=== PATIENT | female | born 1925 | race Caucasian/White ===

== ENCOUNTER 2017-07-11 21:05 | Observation (INO) | payer OTHER, MEDICARE ==
--- NOTE | 2017-07-11 21:15 | CPEKG ---
Heart Rate: 74 RR Interval: 811 QRSD Interval: 80 QT Interval: 388 QTC Interval: 431 QRS [place]: -9 T Wave [place]: 40 EKG Severity - ABNORMAL ECG - EKG Impression: ATRIAL FIBRILLATION Electronically Signed By: John Salinas 11-Jul-2017 21:30:23
[2017-07-11] MEDS ORDERED: NS 1,000 ML IV ONE (21:26)
[2017-07-11] MEDS ORDERED: ASPIRIN 81 MG CHEWABLE TAB PO ONE (21:26)
[2017-07-11] MEDS ORDERED: MAG HYDROX/AL HYDROX/SIMETH 30 ML UDCUP PO ONE (21:26)
[2017-07-11] MEDS ORDERED: LIDOCAINE 2% VISCOUS 15 ML UDCUP PO ONE (21:26)
[2017-07-11] MEDS ORDERED: HYOSCYAMINE SULFATE 0.125 MG TAB PO ONE (21:26)
--- NOTE | 2017-07-11 21:30 | EDPHY ---
H & P Stated Complaint: Chest pain since this morning Time Seen by Provider: 07/11/17 21:16 HPI/ROS: CHIEF COMPLAINT: Chest pain HISTORY OF PRESENT ILLNESS: Patient is an 89-year-old female with a history of coronary artery disease with 2 stents, atrial fibrillation on Coumadin as well as DVTs. She began burping and having chest discomfort this afternoon after lunch. She states that is very typical for to have burping and back discomfort and that is typically a sign of her indigestion. She took Tums without significant relief. It was unusual for her pain to be in her front. She has not had a fever. No shortness of breath. No diaphoresis. No nausea vomiting. She was not lightheaded or dizzy. REVIEW OF SYSTEMS: Constitutional: denies: chills, fever, recent illness, recent injury EENTM: denies: blurred vision, double vision, nose congestion Respiratory: denies: cough, shortness of breath Cardiac: See HPI Gastrointestinal/Abdominal: See HPI denies: abdominal pain, diarrhea, nausea, vomiting, blood streaked stools Genitourinary: denies: dysuria, frequency, hematuria, pain Musculoskeletal: denies: joint pain, muscle pain Skin: denies: lesions, rash, jaundice, bruising Neurological: denies: headache, numbness, paresthesia, tingling, dizziness, weakness Hematologic/Lymphatic: denies: blood clots, easy bleeding, easy bruising Immunologic/allergic: denies: HIV/AIDS, transplant EXAM: GENERAL: Well-appearing, well-nourished and in no acute distress. HEAD: Atraumatic, normocephalic. EYES: Pupils equal round and reactive to light, extraocular movements intact, sclera anicteric, conjunctiva are normal. ENT: TMs normal, nares patent, oropharynx clear without exudates. Moist mucous membranes. NECK: Normal range of motion, supple without lymphadenopathy or JVD. LUNGS: Breath sounds clear to auscultation bilaterally and equal. No wheezes rales or rhonchi. HEART: Irregular rhythm without murmurs, rubs or gallops. ABDOMEN: Soft, nontender, normoactive bowel sounds. No guarding, no rebound. No masses appreciated. BACK: No CVA tenderness, no spinal tenderness, step-offs or deformities EXTREMITIES: Normal range of motion, no pitting or edema. No clubbing or cyanosis. NEUROLOGICAL: Cranial nerves II through XII grossly intact. Normal speech, normal gait. 5/5 strength, normal movement in all extremities, normal sensation PSYCH: Normal mood, normal affect. SKIN: Warm, dry, normal turgor, no visible rashes or lesions. Source: Patient Exam Limitations: No limitations - Personal History Current Tetanus/Diphtheria Vaccine: Yes Current Tetanus Diphtheria and Acellular Pertussis (TDAP): Yes Tetanus Vaccine Date: 2007 - Medical/Surgical History Hx Asthma: No Hx Chronic Respiratory Disease: No Hx Diabetes: No Hx Cardiac Disease: Yes Hx Renal Disease: No Hx Cirrhosis: No Hx Alcoholism: No Hx HIV/AIDS: No Hx Splenectomy or Spleen Trauma: No Other PMH: stents X2, atrial fibrillation, DVT, scleroderma, rainouds disease - Family History Significant Family History: No pertinent family hx - Social History Smoking Status: Never smoked Alcohol Use: Sober Drug Use: None Constitutional: Initial Vital Signs Temperature (C) 36.6 C 07/11/17 21:13 Heart Rate 78 07/11/17 21:13 Respiratory Rate 16 07/11/17 21:13 Blood Pressure 125/82 H 07/11/17 21:13 O2 Sat (%) 99 07/11/17 21:13 O2 Delivery Mode Room Air Allergies/Adverse Reactions: codeine [Codeine] Allergy (Verified 07/12/17 11:13) Other-Enter Comments Home Medications: Medication Instructions Recorded Cholecalciferol Vit D3 [Vitamin D3 1,000 units PO DAILY 01/11/12 (*)] Rosuvastatin Calcium [Crestor 40mg 40 mg PO HS 01/11/12 (*)] Clopidogrel Bisulfate [Plavix (*)] 75 mg PO DAILY #30 tab 01/16/12 Warfarin Sodium [Coumadin 2MG (*)] 2 mg PO SUTUTHSA 07/11/17 Warfarin Sodium [Coumadin 3MG (*)] 3 mg PO MWF 07/11/17 Diltiazem HCl [Diltiazem 24Hr ER] 120 mg PO DAILY 07/12/17 Levothyroxine [Synthroid 50 mcg 50 mcg PO DAILY06 07/12/17 (*)] Ranitidine HCl 150 mg PO BID #60 tablet 07/12/17 Medical Decision Making - Diagnostics EKG Interpretation: An EKG obtained and was read and documented in trace view. Please see trace view for full reading and report. Atrial fibrillation, no acute ischemic changes , similar to 2012 ED Course/Re-evaluation: The patient's creatinine is slightly elevated but appears to be her baseline. Troponin is negative. I suspect that her discomfort is from the atrial fibrillation which is somewhat unusual for her. It is rate controlled at 70. 10:20 p.m. I discussed the case with Dr. Bar who will admit her Differential Diagnosis: Partial list of the Differential diagnosis considered include but were not limited to; acute coronary disease, atrial fibrillation, anxiety, peptic ulcer disease and although unlikely based on the history and physical exam, I also considered dissection, aneurysm. - Data Points Laboratory Results: Laboratory Results 07/11/17 21:24 07/11/17 21:24 Medications Given: Discontinued Medications Al Hydroxide/Mg Hydroxide (Maalox Susp) 30 ml PO ONCE ONE Stop: 07/11/17 21:27 Last Admin: 07/11/17 21:32 Dose: 30 ml Aspirin (Aspirin) 324 mg PO EDNOW ONE Stop: 07/11/17 21:27 Last Admin: 07/11/17 21:32 Dose: 324 mg Calcium Carbonate (Tums) 500 mg PO TID PRN PRN Reason: Indigestion Stop: 01/07/18 22:35 Last Admin: 07/11/17 23:40 Dose: 500 mg Famotidine (Pepcid) 20 mg PO EDNOW ONE Stop: 07/11/17 22:17 Last Admin: 07/11/17 22:21 Dose: 20 mg Hyoscyamine Sulfate (Levsin, Hyomax-Sl) 0.25 mg PO ONCE ONE Stop: 07/11/17 21:27 Last Admin: 07/11/17 21:31 Dose: 0.25 mg Sodium Chloride (Ns) 1,000 mls @ 0 mls/hr IV EDNOW ONE; Wide Open PRN Reason: Protocol Stop: 07/11/17 21:27 Last Admin: 07/11/17 21:32 Dose: 1,000 mls Sodium Chloride (Ns) 1,000 mls @ 75 mls/hr IV CONT SMITH Stop: 01/07/18 22:29 Last Admin: 07/11/17 23:36 Dose: 1,000 mls Lidocaine (Lidocaine 2% Viscous) 15 ml PO ONCE ONE Stop: 07/11/17 21:27 Last Admin: 07/11/17 21:32 Dose: 15 ml Nitroglycerin (Nitrostat) 0.4 mg SL Q5M PRN PRN Reason: Chest Pain Stop: 01/07/18 22:35 Last Admin: 07/11/17 23:39 Dose: 0.4 mg Departure - Departure Disposition: [facility] Acute Clinical Impression: Atrial fibrillation Qualifiers: Atrial fibrillation type: paroxysmal Qualified Code(s): I48.0 - Paroxysmal atrial fibrillation Condition: Fair
[2017-07-11 21:39] LABS: PLATELET COUNT 184 10^3/uL (150-400)
[2017-07-11 21:47] LABS: INR 1.91 (0.83-1.16)
[2017-07-11] MEDS ORDERED: FAMOTIDINE 20 MG TAB PO ONE (22:16)
[2017-07-11] MEDS ORDERED: ONDANSETRON 4 MG/2 ML VIAL IVP PRN (22:29)
[2017-07-11] MEDS ORDERED: ACETAMINOPHEN 325 MG TAB PO PRN (22:29)
[2017-07-11] MEDS ORDERED: NS 1,000 ML IV SCH (22:30)
[2017-07-11] MEDS ORDERED: NITROGLYCERIN 0.4 MG BTL SL PRN (22:36)
[2017-07-11] MEDS ORDERED: CALCIUM CARBONATE 500 MG CHEWABLE TAB PO PRN (22:36)
--- NOTE | 2017-07-12 02:19 | PDGENHP ---
History and Physical - Chief Complaint Chest pain and palpitations - History of Present Illness Source-patient provides history and appears reliable. EMR was reviewed and case discussed with ED provider. HPI-this is a very pleasant 89-year-old female with past medical history significant for CAD status post stent, atrial fibrillation on chronic anticoagulation with Coumadin, history of DVT and PVD, hypothyroidism, CKD stage 3, anemia, scleroderma and Raynaud's who presents emergency department today with complaints of exertional fatigue x1 day and chest pain. Patient denies any fevers, chills, cough, rhinorrhea, or shortness of breath. She reports that she has been increasingly fatigued today and felt worn out. She went to lunch with her daughter when she returned home she went straight to bed and slept for several hours. Later then the evening patient reports that she developed some belching and thought that her reflux symptoms were flaring so she attempted to take some Tums without any improvement in her symptoms. Patient continued to have upper parasternal chest discomfort worse with inspiration but she also was complaining some left-sided chest pain and palpitations which is unusual for her symptoms of reflux. Patient became increasingly concerned presented to the emergency department for evaluation. In the ED-patient was given a full dose aspirin. Initial EKG and troponins were negative. Patient was also given a GI cocktail without improvement in her symptoms. Upon arrival to the floor patient continued to have complaints of parasternal chest pain and she received a dose of nitroglycerin without significant improvement in her pain. She is reporting more of a pleuritic type chest discomfort and continued belching. She denies any nausea vomiting. No shortness of breath. History Information - Allergies/Home Medication List Allergies/Adverse Reactions: codeine [Codeine] Allergy (Verified 07/11/17 21:13) Other-Enter Comments Home Medications: Cholecalciferol Vit D3 [Vitamin D3 (*)] 1,000 units PO DAILY 01/11/12 [Last Taken 01/11/12] Pharmacist Completed 01/11/12 [Last Taken 01/11/12] Rosuvastatin Calcium [Crestor 40mg (*)] 40 mg PO HS 01/11/12 [Last Taken ] Reconciled 01-14-2012 01/14/12 [Last Taken Unknown] Warfarin Sodium [Coumadin 2MG (*)] 2 mg PO SUTUTHSA 07/11/17 [Last Taken ] Warfarin Sodium [Coumadin 3MG (*)] 3 mg PO MWF 07/11/17 [Last Taken 07/11/17] I have personally reviewed and updated: family history, medical history, social history, surgical history - Past Medical History atrial fibrillation, DVT, GERD, osteoporosis Additional medical history: CAD status post stenting, atrial fibrillation on chronic anticoagulation with Coumadin, DVT, PVD, hypothyroidism, hyperlipidemia , scleroderma, Raynaud's, CKD stage 3 with baseline creatinine approximately 1.5 -1.7, anemia, osteoporosis - Surgical History Additional surgical history: Cardiac cath with stent placement - Family History Additional family history: Daughter with fibromyalgia and arthritis. Patient has 6 children she reports otherwise are healthy without any history of coronary artery disease. - Social History Smoking Status: Never smoked Alcohol Use: Occasionally (Patient drinks 1-2 glasses of wine weekly) Drug Use: None Additional social history: Patient lives alone in her own home. She has good support from her adult children. Cor status-full at this time. Patient desires to speak with her children regarding her advanced directives. Review of Systems Review of Systems: ROS: 10pt was reviewed & negative except for what was stated in HPI & below Constitutional: Reports: malaise (Just today). Denies: chills, fever, recent illness, weakness EENMT: Reports: sore throat (Dry scratchy throat), other (Patient complains of severe dry mouth). Denies: double vision, nose congestion Cardiac: Reports: chest pain, palpitations. Denies: edema, lightheadedness, syncope Respiratory: Reports: no symptoms. Denies: cough, shortness of breath Gastrointestinal: Reports: no symptoms Genitourinary: Reports: no symptoms Muscolosketal: Reports: no symptoms Skin: Reports: no symptoms Neurological: Reports: no symptoms Hematologic/Lymphatic: Reports: no symptoms Physical Exam Physical Exam: Selected Entries 07/11/17 21:13 Blood Pressure Automatic Method Heart Rate 78 Respiratory 16 Rate O2 Sat (%) 99 Temperature (C) 36.6 C Blood Pressure 125/82 H Mean Arterial 96 Pressure (MAP) O2 Delivery Room Air Mode Temperature Oral Source Temp Pulse Resp BP Pulse Ox 36.7 C 82 20 133/81 H 91 L 07/11/17 23:57 07/11/17 23:57 07/11/17 23:57 07/11/17 23:57 07/11/17 23:57 Constitutional: no apparent distress, other (NAD. Pleasant frail elderly appearing female is lying quietly in bed.) Eyes: PERRL, anicteric sclera, EOMI, No scleral injection Ears, Nose, Mouth, Throat: dry mucous membranes, hard of hearing (Patient without hearing aids in place), other (No nasal discharge), No poor dentition Cardiovascular: regular rate and rhythym, no murmur, rub, or gallop (Slightly distant heart sounds), No tachycardia, No edema Peripheral Pulses: 1+: dorsalis-pedis (R), dorsalis-pedis (L) Respiratory: no respiratory distress, no rales or rhonchi, clear to auscultation , reduced air movement (Decreased inspiratory effort), No expiratory wheeze Gastrointestinal: normoactive bowel sounds, soft, non-tender abdomen, no palpable masses, No distension Genitourinary: no bladder tenderness, No monroe in urethra Skin: warm, normal color, no rashes or abrasions Musculoskeletal: generalized weakness, No pain with ROM Neurologic: AAOx3, sensation intact bilaterally, CN II-XII Intact, No weakness ( Generalized weakness/deconditioning), No facial droop Psychiatric: interacting appropriately, not anxious, not encephalopathic, thought process linear, No poor insight, No poor judgement, No poor memory Lab Data & Imaging Review 07/11/17 21:24 07/11/17 21:24 WBC 8.33 10^3/uL (3.80-9.50) 07/11/17 21:24 RBC 4.40 10^6/uL (4.18-5.33) 07/11/17 21:24 Hgb 12.5 g/dL (12.6-16.3) L 07/11/17 21:24 Hct 38.4 % (38.0-47.0) 07/11/17 21:24 MCV 87.3 fL (81.5-99.8) 07/11/17 21:24 MCH 28.4 pg (27.9-34.1) 07/11/17 21:24 MCHC 32.6 g/dL (32.4-36.7) 07/11/17 21:24 RDW 15.2 % (11.5-15.2) 07/11/17 21:24 Plt Count 184 10^3/uL (150-400) 07/11/17 21: MPV 10.7 fL (8.7-11.7) 07/11/17 21:24 Neut % (Auto) 75.3 % (39.3-74.2) H 07/11/17 21: Lymph % (Auto) 14.8 % (15.0-45.0) L 07/11/17: Cole % (Auto) 8.4 % (4.5-13.0) 07/11/17 21: Eos % (Auto) 0.8 % (0.6-7.6) 07/11/17: Baso % (Auto) 0.5 % (0.3-1.7) 07/11/17: Nucleat RBC Rel Count 0.0 % (0.0-0.2) 07/11/17: Absolute Neuts (auto) 6.27 10^3/uL (1.70-6.50) 07/11/17 21: Absolute Lymphs (auto) 1.23 10^3/uL (1.00-3.00) 07/11/17 21: Absolute Monos (auto) 0.70 10^3/uL (0.30-0.80) 07/11/17 21: Absolute Eos (auto) 0.07 10^3/uL (0.03-0.40) 07/11/17: Absolute Basos (auto) 0.04 10^3/uL (0.02-0.10) 07/11/17 21: Absolute Nucleated RBC 0.00 10^3/uL (0-0.01) 07/11/17: Immature Gran % 0.2 % (0.0-1.1) 07/11/17: Immature Gran # 0.02 10^3/uL (0.00-0.10) 07/11/17 21: PT 22.0 SEC (12.0-15.0) H 07/11/17 21: INR 1.91 (0.83-1.16) H 07/11/17:24 APTT 31.5 SEC (23.0-38.0) 07/11/17 21:24 Sodium 140 mEq/L (135-145) 07/11/17 21:24 Potassium 4.0 mEq/L (3.5-5.2) 07/11/17 21:24 Chloride 107 mEq/L (97-110) 07/11/17 21:24 Carbon Dioxide 20 mEq/l (22-31) L 07/11/17 21:24 Anion Gap 13 mEq/L (8-16) 07/11/17 21:24 BUN 22 mg/dL (7-23) 07/11/17 21:24 Creatinine 1.5 mg/dL (0.6-1.0) H 07/11/17 21:24 Estimated GFR 33 07/11/17 21:24 Glucose 105 mg/dL (70-100) H 07/11/17 21:24 Calcium 9.0 mg/dL (8.5-10.4) 07/11/17 21:24 Total Bilirubin 1.3 mg/dL (0.1-1.4) 07/11/17 21:24 Conjugated Bilirubin 0.6 mg/dL (0.0-0.5) H 07/11/17 21:24 Unconjugated Bilirubin 0.7 mg/dL (0.0-1.1) 07/11/17 21:24 AST 45 IU/L (14-46) 07/11/17 21:24 ALT 30 IU/L (9-52) 07/11/17 21:24 Alkaline Phosphatase 107 IU/L (38-126) 07/11/17 21:24 Troponin I < 0.012 ng/mL (0.000-0.034) 07/11/17 21:24 Total Protein 7.6 g/dL (6.3-8.2) 07/11/17 21:24 Albumin 4.2 g/dL (3.5-5.0) 07/11/17 21:24 Lipase 213 IU/L (23-300) 07/11/17 21:24 Imaging Review: Chest, One View Portable, July 11, 2017 at 2137 hours History: Chest pain. Comparison: None. Findings: Cardiac silhouette is moderately enlarged, with atherosclerotic tortuous aorta. Prominent pulmonary vasculature suggesting mild pulmonary venous hypertension. No pleural effusion or pneumothorax. Bilateral apical pleuroparenchymal scarring. Left costophrenic angle patchy opacity noted. Impression: 1. Cardiomegaly and atherosclerotic aorta. 2. Mild pulmonary edema pattern. 3. More focal left costophrenic angle opacity representing parenchymal scarring versus pneumonitis. 4. Consider chest, two views, when the patient's medical condition permits. Dictated By: Gonzalo Arnold Visualized and Interpreted imaging results: Yes Visualized and Interpreted EKG results: Yes EKG additional interpertation: Atrial fibrillation with the rate in the 70s. No acute ST changes. There is a Q-wave in lead 3 which is more pronounced than it was compared to 2012 EKG. Assessment & Plan Assessment: Pleasant 89-year-old female with history of CAD, DVT on chronic anticoagulation with Coumadin, PVD, hypothyroidism, CKD stage 3, scleroderma who presents emergency department today with complaints of 1 day history of chest pain. Chest pain - differential diagnosis including reflux, angina, pneumonia, other pleuritic-type chest pain. Initial EKG and cardiac enzymes are without evidence of ischemia or acute infarct. patient did not see any improvement with GI cocktail. She reports that the dose of nitroglycerin received on the floor may have decreased her symptoms just slightly but she declines any additional dosing. She states she has an allergy to codeine and morphine in all pain medications she just does not feel well with them and has trouble breathing. Offered Tylenol or additional GI it treatment and patient declined. Patient reports she just wants to try to sleep. There is no acute changes on continuous tele. Chest x-ray AP view did note the possibility of left lower lobe scarring versus early pneumonia. There is some evidence of pulmonary edema in addition although patient without clinical reports of symptoms of CHF she has been having increased fatigue with exertion. X-ray was single-view AP with recommendations for follow-up two view which will be ordered in the morning. Also obtain echocardiogram in the a.m. As well. Given her history we will plan to trend cardiac enzymes and obtain echocardiogram in the morning. Will have day hospitalist follow up on a.m. Labs and consider stress testing if appropriate. HEART score is 3. Chronic medical problems Atrial fibrillation (Acute)-of rate is very well controlled will plan to resume patient's Cardizem. Patient does report some occasional palpitations but she denies any episodes of tachycardia and none have been observed on the telemetry floor at this point. Chronic anticoagulation - resume Coumadin goal INR 2-3.0 CKD stage 3 - baseline creatinine appears to be 1.5-1.7. Per patient her creatinine is 1.5. Will try to renally dose her medications. Anemia of chronic disease - minimally decreased HH without evidence of active bleeding. Will not check a a.m. CBC at this point Osteoporosis - resume vitamin-D at discharge. Hypothyroidism - resume patient's levothyroxine supplementation. PVD - continue Coumadin Plavix Scleroderma - supportive care Raynaud's - supportive care HLD - resume statin FEN - patient does appear to be slightly dry. She denies any respiratory distress or shortness of breath. Lung exam is fairly benign with exception of some decreased air movement at the bases. Continue some IV fluids overnight for gentle hydration will monitor respiratory status and fluid status closely. Electrolytes will be monitored and replaced if needed. Patient will be made NPO after midnight pending repeat laboratory studies for possibility in need of procedure. PPX- On Coumadin just slightly subtherapeutic. SCDs will hold off on SCDs at this point. Cor status-full at this time. Patient desires to speak with her 2 sons regarding advance directives. Disposition-patient admitted to observation stay on PCU
--- NOTE | 2017-07-12 09:03 | HOSPPROG ---
Hospitalist Progress Note Assessment/Plan: #Atypical chest pain: resolved after belching. Negative trops, EKG. Echo negative for WMA. Will FU with Dr. Urbina with Cardiology #Pulm HTN: pressures stable from prior echo. No SOB or overload. Monitor closely #CAD: s/p PCI. Plavix, statin #h/o DVT/PE: INR 1.91. Discussed with son and patient and chose not to bridge. Repeat INR with her PCP #GERD: start ranitidine #Disp: DC today, lives independently Subjective: CP relieved after burping this morning. No relief with nitro Objective: Vital Signs Temp Pulse Resp BP Pulse Ox 37.6 C 77 17 103/54 L 95 07/12/17 08:00 07/12/17 08:00 07/12/17 08:00 07/12/17 08:00 07/12/17 08:00 07/11/17 07/12/17 07/13/17 05:59 05:59 05:59 Intake Total 1000 487 Balance 1000 487 PT 22.0 SEC (12.0-15.0) H 07/11/17 21:24 INR 1.91 (0.83-1.16) H 07/11/17 21:24 - Physical Exam Constitutional: no apparent distress Eyes: PERRL Ears, Nose, Mouth, Throat: moist mucous membranes Cardiovascular: irregularly irregular, No edema Respiratory: no respiratory distress Gastrointestinal: normoactive bowel sounds, other (mild epigastric TTP ) Skin: warm Musculoskeletal: full muscle strength Neurologic: AAOx3 ICD10 Worksheet Patient Problems: Problems Problem Status Onset Atrial fibrillation Acute
[2017-07-12 11:59] VITALS: BP 122/61
--- NOTE | 2017-07-12 12:36 | ECHO ---
[email or web address] [address] [address] Main: [phone] Fax: [email or web address] Echocardiogram Name: KRISTOPHER OWENS MR#: [id number] Study Date: 07/12/2017 Study Time: 10:17 AM Date of : 1925 Age: 89 year(s) Height: 162.6 cm (64 in.) Weight: 47.63 kg (105 lb.) BSA: 1.49 m2 Gender: Female Examination: Echo Indication: Chronic A-Fib, Chest Pain Image Quality: Contrast: Requested by: Aisha Bar BP: 103 mmHg/54 mmHg Heart Rate: Rhythm: Atrial fibrillation Indication: Chronic A-Fib, Chest Pain Procedure Staff Supervisory It Specialist: Miguel Rodriguez RDCS Reading Physician: Raz Urbina MD Requesting Provider: Conclusions: Normal size left ventricle. Normal global systolic LV function. EF is 75 %. Normal RV function. Flattened interventricular septum consistent with right ventricular pressure and/or volume overload free wall. The left atrium is severely dilated. The right atrium is moderately dilated. Moderate aortic cusp calcification is present. No aortic valve stenosis is present. There is no aortic valve regurgitation. The AV Mean PG is 9 mmHg, peak of 15 mmHg. Dimensionless index 0.35. Moderate tricuspid regurgitation is present. RVSP 44 mmhg. The IVC is normal sized. No pericardial effusion. Measurements: Chambers Valvular Assessment AV/MV Valvular Assessment TV/PV Normal Normal Normal Name Value Range Name Value Range Name Value Range Ao Rachel (MM): 3.0 cm (2.2 cm-3.7 AV Vmax: 1.95 m/s (1 m/s-1.7 TR Vmax: 3.14 mm/s ( - ) cm) m/s) TR PGmax: 39 mmHg ( - ) IVSd (2D): 0.7 cm (0.6 cm-1.1 AV maxP mmHg ( - ) syst. PAP: 44 mmHg ( - ) cm) AV meanP mmHg ( - ) PV Vmax: 0.78 m/s (0.6 m/s-0.9 LVDd (2D): 4.5 cm (3.9 cm-5.3 KEAGAN (VTI): 1.0 cm ( - ) m/s) cm) MV E Vmax: 1.47 m/s ( - ) PV PGmax: 2 mmHg ( - ) LVDs (2D): 2.5 cm (2.1 cm-4 cm) LVPWd (2D): 0.8 cm ( - ) Patient: KRISTOPHER OWENS Study Date: 07/12/2017 Page 1 of 2 10:17 AM LVOTd 1.9 cm 1.9 cm mm LVEF (2D): 75 (>=54 %) Continued Measurements: Chambers Valvular Assessment AV/MV Valvular Assessment TV/PV Name Value Name Value Name Value LADs: 3.8 cm MV E' Septal: 0.06 m/s CVP (est.): 5 mmHg LADs Lon.8 cm MV E/E' Septal: 26.00 LA Area: 23.8 cm2 MV E/E' Lateral: 19.10 LA Volume: 73 ml LA Volume Index: 49.0 ml/m2 Findings: Left Ventricle: Normal size left ventricle. No LV hypertrophy. Normal global systolic LV function. EF is 75 %. Diastolic dysfunction is present. . The rhythm is atrial fibrillation.. Right Ventricle: Normal size right ventricle. Normal RV function. Flattened interventricular septum consistent with right ventricular pressure and/or volume overload free wall. Left Atrium: The left atrium is severely dilated. Right Atrium: The right atrium is moderately dilated. Mitral Valve: Mild mitral valve leaflet calcification is present. Mild mitral annular calcification. Trivial mitral valve regurgitation. Aortic Valve: Moderate aortic cusp calcification is present. The aortic valve is tri-leaflet. No aortic valve stenosis is present. There is no aortic valve regurgitation. The AV Mean PG is 9 mmHg, peak of 15 mmHg. Dimensionless index 0.35. Tricuspid Valve: The tricuspid valve appears normal. Moderate tricuspid regurgitation is present. The pulmonary artery pressure is mildly increased. RVSP 44 mmhg. Pulmonic Valve: Pulmonary valve not well visualized. Aorta: The aorta is normal. IVC: The IVC is normal sized. Pericardium: No pericardial effusion. (No Signature Object) Patient: KRISTOPHER OWENS Study Date: 07/12/2017 Page 2 of 2 10:17 AM [id number]
--- NOTE | 2017-07-12 13:39 | ASMTCMCOM ---
CM Note CM Note Notes: Chart reviewed. 89 year old female with atypical chest pain. R/O ACS. Normally lives independent. No therapies ordered. No current needs identified for discharge at this time. CM available should needs arise. Plan: Likely home with no needs, Date Signed: 07/12/2017 12:16 PM Electronically Signed By:Sonya Brambila RN
--- NOTE | 2017-07-12 13:39 | ASMTLACE ---
LACE Length of stay for Answers: Less than 1 day current admission Acuity / Level of Answers: No Care: Did the patient have an inpatient admission? Comorbidities - select Answers: Coronary Artery Disease all that apply # of Emergency department Answers: 1-2 visits in the last 6 months Score: 3 Date Signed: 07/12/2017 01:38 PM Electronically Signed By:Sonya Brambila RN
--- NOTE | 2017-07-12 14:15 | GDS ---
[f rep st] DISCHARGE SUMMARY DISCHARGE DIAGNOSES: 1. Atypical chest pain. 2. History of coronary artery disease, status post 2 stents. 3. History of deep venous thrombosis, pulmonary embolism. 4. Pulmonary hypertension. 5. Chronic anticoagulation. 6. Peripheral vascular disease. 7. Hypothyroidism. 8. Chronic kidney disease 3. 9. Scleroderma. 10. Raynaud's. HISTORY OF PRESENT ILLNESS: An 89-year-old female with known coronary disease with prior PCI, pulmon clint hypertension, history of PE/DVT presenting to the ER with exertional fatigue x1 day and chest robin n. She says the pain feels like she needs to burp. She felt more fatigued and worn out. The pain w as in her esophagus and epigastric region. She tried to take Tums and the symptoms did not improve. Last night here she took a nitroglycerin without relief. HOSPITAL COURSE BY PROBLEM: 1. Atypical chest pain: Differential includes ACS versus GERD versus musculoskeletal. The pain was relieved this morning after belching. She denies chest pain/shortness of breath at baseline when cl imbing stairs at home. Troponins and EKG were negative for ischemia. Echocardiogram showed normal L VF. No wall motion abnormalities. She is currently pain-free. We will treat her GERD symptoms with ranitidine. She can follow up with Cardiology. She will see Dr. 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 2. Pulmonary hypertension: RVSP was 44 mmHg. This is lower than previous. She has no evidence of volume overload or shortness of breath. We will continue to monitor closely with followup with Cardi ology. 3. History of DVT, PE: She is on Coumadin. INR is minimally low at 1.9 today. Will not bridge giv en age and risk for bleeding. She was in agreement with this plan. She will follow up with Dr. Kristina tierney for a repeat INR. 4. Atrial fibrillation: Continue Coumadin and diltiazem. 5. Coronary artery disease: Status post 2 stents. Pain was atypical today. She had negative tropo nins and EKG. Could consider outpatient testing, but I do not think she warrants a stress test here at this time. Continue aspirin, statin. 6. Hypothyroidism: Levothyroxine. 7. GERD: Ranitidine. DISPOSITION: Patient is stable for home. She lives independently. Plan was discussed with her son at bedside. NEW MEDICATIONS: Ranitidine 150 mg b.i.d. FOLLOWUP: 1. Dr. Orellana. 2. Dr. Urbina with Cardiology. /[id number]/MODL
[2017-07-12] MEDS ORDERED: WARFARIN SODIUM 2 MG TAB PO SCH (16:00)
[2017-07-12] MEDS ORDERED: ROSUVASTATIN CALCIUM 40 MG TAB PO SCH (21:00)
[2017-07-12] MEDS ORDERED: ROSUVASTATIN CALCIUM 40 MG PO SCH ×2 (21:00)
[2017-07-13] MEDS ORDERED: CLOPIDOGREL BISULFATE 75 MG TAB PO SCH (09:00)
[2017-07-14] MEDS ORDERED: WARFARIN SODIUM 3 MG TAB PO SCH (16:00)
== END 2017-07-12 13:55 | disposition home or self-care (01) ==
LOC: F2W 23:11
PROVIDERS: ADMIT Family Medicine; ATTEND Internal Medicine
DX: R07.89 Other chest pain (principal); I25.10 Atherosclerotic heart disease of native coronary artery without angina pectoris; I27.20 Pulmonary hypertension, unspecified; I48.0 Paroxysmal atrial fibrillation; E03.9 Hypothyroidism, unspecified; N18.3 Chronic kidney disease, stage 3 (moderate); I73.9 Peripheral vascular disease, unspecified; M34.9 Systemic sclerosis, unspecified; I73.00 Raynaud's syndrome without gangrene; Z95.5 Presence of coronary angioplasty implant and graft; Z86.711 Personal history of pulmonary embolism; Z86.718 Personal history of other venous thrombosis and embolism; Z79.01 Long term (current) use of anticoagulants
CPT/HCPCS: 71045; 71046; 93005; 93306; G0378